=== PATIENT | female | born 1975 | race Two or more races ===

== ENCOUNTER 2020-02-13 11:45 | Inpatient (IN) | payer OTHER ==
[~2020-02-13] VITALS: Ht 160 cm; Wt 66.7 kg
[2020-02-13] MEDS ORDERED: SYNTHROID75 MCG PO (14:55)
[2020-02-13] MEDS ORDERED: CLONAZEPAM1 MG PO (14:56)
[2020-02-13] MEDS ORDERED: COZAAR50 MG PO (14:56)
[2020-02-13] MEDS ORDERED: ABILIFY2 MG PO (16:06)
[2020-02-16] MEDS ORDERED: LAMICTAL200 MG PO (08:53)
[2020-02-16] MEDS ORDERED: RESTORIL30 MG PO (08:53)
[2020-02-16] MEDS ORDERED: VITAMIN C500 M1 PO (08:54)
[2020-02-16] MEDS ORDERED: HYDROCHLOROTH12.5 MG PO (08:55)
[2020-02-16] MEDS ORDERED: ABILIFY10 MG PO (08:55)
[2020-02-16] MEDS ORDERED: RESTORIL15 MG PO (08:56)
[2020-02-16] MEDS ORDERED: GLYCOLAX119 GM (09:56)
[2020-02-19] MEDS ORDERED: IBUPROFEN800 MG PO (11:11)
[2020-02-19] MEDS ORDERED: CODE1TAB37 PO (11:11)
== END 2020-02-19 11:20 | DRG 742 ==
LOC: O/R 02-16 05:08 → SURG-SUITE 02-16 05:08 → SURH 02-16 10:45 → O/R 02-16 11:45 → SURH 02-16 11:45 → OB/GYN 02-16 13:15 → SURG-SUITE 02-16 13:28
PROVIDERS: Surgery; ADMIT Obstetrics & Gynecology; ATTEND Obstetrics & Gynecology
PROC: 0DN Gastrointestinal System, Release (ICD-10-PCS; 2020-02-16)
PROC: 0UT97ZZ Resection of Uterus, Via Natural or Artificial Opening (ICD-10-PCS; principal; 2020-02-16 10:45)
PROC: 0DQB0ZZ Repair Ileum, Open Approach (ICD-10-PCS; 2020-02-16 10:45)
DX: D25.1 Intramural leiomyoma of uterus (principal); K91.71 Accidental puncture and laceration of a digestive system organ or structure during a digestive system procedure; D25.0 Submucous leiomyoma of uterus; N92.0 Excessive and frequent menstruation with regular cycle; K66.0 Peritoneal adhesions (postprocedural) (postinfection)